=== PATIENT | female | born 1970 | race Caucasian/White ===

== ENCOUNTER 2016-05-01 05:25 | Inpatient (IN) | payer MEDICAID ==
[~2016-05-01] VITALS: Ht 170.2 cm; Wt 87.1 kg
--- NOTE | ~2016-05-01 | OR ---
ADMIT: 05/01/2016 RM/LOC: 223 [facility] MR#: [id number] [id number] [place], [place] [address] JANICE JERNIGAN [address] [place] [address] Operative/Delivery Room Report SEX: F AGE: 46 : 1970 SURGERY DATE: 05/01/2016 SURGEON: Sara Rebollar MD PROCEDURE: Repeat low-transverse section. CLOTH PATTERN MAKER: Viola Mixon MD Resident. PREOPERATIVE DIAGNOSES: 1. Intrauterine at 39 and 5/7th weeks' gestation. 2. Previous section x3. 3. Advanced maternal age. 4. Intrauterine growth restriction. POSTOP DIAGNOSES: 1. Intrauterine at 39 and 5/7th weeks' gestation. 2. Previous section x3. 3. Advanced maternal age. 4. Intrauterine growth restriction. FINDINGS: 1. Liveborn female , scores 9 at 1 minute, 9 at 5 minutes. Weight 6 pounds 1 ounce. 2. Normal appearing uterus, tubes, and ovaries bilaterally. ESTIMATED BLOOD LOSS: 500 mL. ANESTHESIA: Spinal. COMPLICATIONS: None. INDICATIONS FOR PROCEDURE: The patient is a 46-year-old, 8 para 5-0-2- 5 who presented to Labor and Delivery at 39 and 5/7th weeks' gestation for a scheduled repeat section at term. The patient's had been complicated by previous section x3, advanced maternal age, and intrauterine growth restriction. The 's growth has been normal at the time of her last ultrasound at approximately 36 weeks. After reviewing risks, benefits, and alternatives of surgery, the patient desired repeat section. DESCRIPTION OF PROCEDURE: The patient was taken to the operating room where spinal anesthesia was obtained without difficulty. The patient was placed in dorsal supine position in leftward tilt and prepped and draped in the usual sterile fashion. Green catheter had been previously placed. A Pfannenstiel skin incision was made with scalpel and carried through to the underlying layer of fascia. The fascia was nicked in midline and this incision was extended bilaterally using Gonzalez scissors. There was extensive scarring of the fascia layer. The superior aspect of fascial incision was grasped with Minal clamps, elevated, and the underlying rectus muscles were dissected off with ADMIT: 05/01/2016 RM/LOC: 223 [facility] MR#: [id number] [id number] [address] [facility] [address] [place] [address] Operative/Delivery Room Report SEX: F AGE: 46 : 1970 Gonzalez scissors. In a similar fashion, the inferior aspect of the fascial incision was grasped with Minal clamps, elevated, and the underlying rectus muscles were dissected off with Gonzalez scissors and bluntly. The perineum was entered bluntly. This incision was extended somewhat bluntly but it was difficulty due to scarring and so this incision was extended inferiorly with Metzenbaum scissors with good visualization of the bladder as well as laterally with electrocautery. At this point, the bladder blade was able to be placed. The vesicouterine peritoneum was identified and entered sharply with Metzenbaum scissors. This incision was extended bilaterally and a bladder flap was created digitally. The bladder blade was then replaced. The lower uterine segment was incised with a scalpel. Clear fluid was noted at time of the amniotomy. The lower uterine segment was extended bluntly. The 's vertex was grasped and delivered through the uterine incision. The remainder of the infant delivered without difficulty as well. The infant was dried. The cord was clamped and cut [facility]. The placenta then delivered. Twenty units of Pitocin were placed in IV bag to firm the uterus. The uterus was exteriorized and cleared of all clots and debris. There was noted to be poor uterine tone and so additional dose of Methergine was given at this time, and this did improve uterine tone significantly. The skin incision was then closed in a running locked fashion using 0 Vicryl. Good hemostasis was noted. The uterus was replaced into the abdominal cavity. The gutters were checked and cleared of all clots and debris. The uterine incision was again examined and was noted be hemostatic. The muscles and fascia were examined. Made hemostatic with electrocautery. The fascial incision was then closed in a running fashion using 0 Vicryl. The subcutaneous layer was made hemostatic with electrocautery and this layer was brought together using interrupted 2-0 plain gut. The skin incision was then closed with subcuticular stapler. The patient tolerated the procedure well. All sponge and needle counts were correct. The patient went to recovery room in stable condition. EDIT: 05/02/2016 0623 njv Sara Rebollar MD/ angle JOB #: [id number] CC: Sara Rebollar MD, Attending Physician Sara Rebollar MD, Family Physician
[2016-05-05] MEDS ORDERED: SENOKOT DPS8.6 MG PO (16:58)
[2016-05-05] MEDS ORDERED: PRENATAL VIT1 TAB PO (16:58)
[2016-05-05] MEDS ORDERED: ZANTAC 7575 MG PO (16:59)
[2016-05-05] MEDS ORDERED: MOTRIN-DPS800 MG PO (16:59)
[2016-05-05] MEDS ORDERED: PERCOCET 5 DPS1 TAB PO (16:59)
[2016-05-05] MEDS ORDERED: COLACE-DPS100 MG PO (16:59)
[2016-05-05] MEDS ORDERED: NIPPLECREAM TP (16:59)
[2016-05-05] MEDS ORDERED: LAN-O-SOOTHE7 GM TP (17:00)
--- NOTE | 2016-06-05 09:07 | HP ---
ADMIT: 05/01/2016 RM/LOC: [facility] MR#: [id number] [id number] [place], [place] [address] JANICE JERNIGAN [address] [place] [address] Pre-OP History and Physical SEX: F AGE: 46 : 1970 DATE OF SERVICE: 05/01/2016 HISTORY OF PRESENT ILLNESS: The patient is a 46-year-old, 8, para 5-0- 2-5, who presents to Labor and Delivery for scheduled section at 39- 5/7 weeks' gestation. The patient's has been complicated by advanced maternal age as well as previous section x3 and intrauterine growth restriction. The growth was noted to be normal at the time of last ultrasound and so was no longer IUGR. After reviewing risks, benefits, and alternatives of delivery, the patient desires repeat section. LABORATORY DATA: Blood type AB positive, antibody screen negative, RPR nonreactive, gonorrhea and chlamydia negative, hepatitis B surface antigen negative. HIV negative. Elevated 1 hour glucose tolerance test with normal 3- hour glucose tolerance test, and group B Strep negative. PAST MEDICAL HISTORY: Noncontributory. PAST SURGICAL HISTORY: section x3 and thyroidectomy in 2010. ALLERGIES: NO KNOWN MEDICAL ALLERGIES. CURRENT MEDICATIONS: vitamins daily and stool softener as needed. FAMILY HISTORY: Mother with history of breast and uterine cancer, and myocardial infarction. Father with hypothyroidism. SOCIAL HISTORY: The patient is . She denies any alcohol, tobacco, or drug use. PHYSICAL EXAMINATION: GENERAL: The patient is alert and oriented, no acute distress. HEART: Regular rate and rhythm without murmurs, gallops, or rubs. LUNGS: Clear to auscultation bilaterally. ADMIT: 05/01/2016 RM/LOC: [facility] MR#: [id number] [address] [address] JANICE JERNIGAN [address] [place] [address] Pre-OP History and Physical SEX: F AGE: 46 : 1970 ABDOMEN: Soft, nontender, gravid. EXTREMITIES: No edema. No calf tenderness. ASSESSMENT AND PLAN: 1. A 46-year-old, 8, para 5-0-2-5 at 39-5/7 weeks' gestation. 2. History of previous section x3. Plan to proceed with repeat low transverse section. The risks, benefits, and alternatives of surgery including, but not limited to the risk of bleeding, possibly requiring blood transfusion, risk of infection, the risk of injury to bowel or bladder were discussed with the patient, she wishes to proceed. 3. Intrauterine growth restriction, now resolved. 4. Advanced maternal age. Sara Rebollar MD/ angle JOB #: [id number] CC: Sara Rebollar MD, Attending Physician Sara Rebollar MD, Family Physician
--- NOTE | 2016-07-03 09:12 | DS ---
ADMIT: 05/01/2016 RM/LOC: 223 [facility] MR#: [id number] [id number] [place], [place] [address] JANICE JERNIGAN [address] [place] [address] General Discharge Summary SEX: F AGE: 46 : 1970 ADMISSION DATE: 05/01/2016 DISCHARGE DATE: 05/04/2016 ADMISSION DIAGNOSES: 1. Intrauterine at 39-5/7th weeks' gestation. 2. Previous section x3. 3. Advanced maternal age. 4. Intrauterine growth restriction in . DISCHARGE DIAGNOSES: 1. Intrauterine at 39-5/7th weeks' gestation. 2. Previous section x3. 3. Advanced maternal age. 4. Intrauterine growth restriction in . PROCEDURE PERFORMED: Repeat low transverse section performed on 05/01/2016, with delivery of liveborn female , scores 9 at 1 minute, 9 at 5 minutes. Weight 6 pounds 1 ounce. HOSPITAL COURSE: The patient underwent the above-named procedure on 05/01/2016. Postoperatively, the patient did well. On postoperative day #1, the patient's pain was controlled. She was ambulating and voiding without difficulty. By postoperative day #1, the patient's hemoglobin was noted to be 11.8. By postoperative day #2, the patient was ambulating, voiding, and tolerating a regular diet and by day #3, the patient was deemed stable for discharge. DISCHARGE INSTRUCTIONS: The patient is to be discharged to home. She is to continue Motrin and Percocet as needed for pain control. She is to follow up in the clinic in 2 weeks for incision check and in 6 weeks for a check. FINAL DISPOSITION: The patient to home. CONDITION ON DISCHARGE: Stable. Sara Rebollar MD/ angle JOB #: [id number] CC: Sara Rebollar MD, Attending Physician Sara Rebollar MD, Family Physician
== END 2016-05-04 11:51 | disposition home or self-care (01) | DRG 766 ==
LOC: 2LDRP 05:25 → BC 05:25 → 2LDRP 05:26 → BC 05-03 08:00 → 2LDRP 05-04 11:51
PROVIDERS: ADMIT Obstetrics & Gynecology
PROC: 10D00Z1 Extraction of Products of Conception, Low, Open Approach (ICD-10-PCS; principal; 2016-05-01)
DX: O34.211 Maternal care for low transverse scar from previous cesarean delivery (principal); Z37.0 Single live birth; Z3A.39 39 weeks gestation of pregnancy